=== PATIENT | female | born 1955 | race Caucasian/White ===

== ENCOUNTER 2025-03-31 06:41 | Emergency (ER) | payer OTHER ==
[~2025-03-31] VITALS: Ht 170.2 cm; Wt 79.4 kg
[2025-03-31 07:14] VITALS: BP 182/119
[2025-03-31] MEDS ORDERED: Triamcinolone Inj Susp 40 MG / ML 1ML Vial IM ONE (07:40)
== END 2025-03-31 07:54 | disposition home or self-care (01) ==
LOC: ER 06:41
DX: L23.7 Allergic contact dermatitis due to plants, except food (principal); Z91.040 Latex allergy status
CPT/HCPCS: 96372; 99282-25; J3301

== ENCOUNTER 2025-04-02 19:11 | Observation (INO) | payer MEDICARE ==
[~2025-04-02] VITALS: Ht 170.2 cm; Wt 72.6 kg
[2025-04-02 20:04] LABS: BASOPHILS ABSOLUTE AUTO 0.03 K/mm3 (0.00-0.23); BASOPHILS PERCENT AUTO 0 % (0-2); EOSINOPHILS ABSOLUTE AUTO 0.23 K/mm3 (0.00-0.68); EOSINOPHILS PERCENT AUTO 3 % (0-6); Hematocrit 41.8 % (33.0-51.0); Hemoglobin 13.9 g/dL (11.5-16.0); IMMATURE GRAN ABSOLUTE AUTO 0.03 K/mm3 (0.00-0.10); IMMATURE GRAN PERCENT AUTO 0 % (0-1); LYMPHOCYTES ABSOLUTE AUTO 0.97 K/mm3 (0.84-5.20); LYMPHOCYTES PERCENT AUTO 12 % (21-46); MONOCYTES ABSOLUTE AUTO 0.97 K/mm3 (0.16-1.47); MONOCYTES PERCENT AUTO 12 % (4-13); Mean Corpuscular HGB Conc 33.3 g/dL (31.5-36.5); Mean Corpuscular Volume 97 fL (80-100); NEUTROPHILS ABSOLUTE AUTO 5.92 K/mm3 (1.96-9.15); NEUTROPHILS PERCENT AUTO 73 % (41-73); NRBC ABSOLUTE 0.00 K/mm3 (0.00-0.02); NRBC Auto 0.0 /100 WBC (0.0-0.2); Platelet Count 186 K/mm3 (150-400); RDW Coefficient Variation 12.3 % (11.7-14.2); RDW Standard Deviation 44.4 fL (35.1-46.3)
[2025-04-02 20:29] LABS: Alanine Aminotransfer (ALT/SGP 32 U/L (12-78); Albumin, Blood 4.0 g/dL (3.4-5.0); Albumin/Globulin Ratio 1.2 (0.8-1.8); Anion Gap 7 mmol/L (3-11); Aspartate Aminotrans (AST/SGOT 23 U/L (12-37); Bilirubin, Total 0.6 mg/dL (0.1-1.0); Blood Urea Nitrogen 26 mg/dL (8-24); CO2, Blood 27 mmol/L (21-32); Calcium, Blood 9.8 mg/dL (8.5-10.1); Chloride, Blood 108 mmol/L (98-108); Creatinine, Blood 0.93 mg/dL (0.40-1.00); Ethanol (Alcohol), Blood, Med <3 mg/dL; Globulin, Blood 3.4 g/dL (2.2-4.0); Glucose, Blood 134 mg/dL (70-99); Potassium, Blood 3.9 mmol/L (3.5-5.5); Sodium, Blood 138 mmol/L (136-145); Total Protein, Blood 7.4 g/dL (6.4-8.2)
[2025-04-02] MEDS ORDERED: NS 1,000 ML IV ONE (20:36)
[2025-04-02 22:06] LABS: Source, Urine Clean Catch
[2025-04-02 22:14] LABS: Bilirubin, Urine Neg (Neg); Glucose Qualitative, Urine Neg (Neg); Ketones, Urine 1+ (Neg); Leukocyte Esterase, Urine 2+ (Neg); Protein, Urine 3+ (Neg); Specific Gravity, Urine 1.030 (1.003-1.022); Urobilinogen, Urine 1+ (Normal)
[2025-04-02 22:21] LABS: Color, Urine Yellow (P-Yellow)
[2025-04-02 22:22] LABS: Red Blood Cells, Urine 50-100 /hpf (0-2)
[2025-04-02 22:36] LABS: U Amphetamine Screen Not Detected; U Barbituate Screen Not Detected; U Benzodiazapine Screen Not Detected; U Cocaine Screen Not Detected; U Methadone Screen Not Detected; U Methamphetamine Screen Not Detected; U Opiates Screen Not Detected
[2025-04-02 22:37] LABS: U Buprenorphine Screen Not Detected; U Cannabinoids Screen Not Detected; U Oxycodone Screen Not Detected; U Phencyclidine Screen Not Detected
[2025-04-02] MEDS ORDERED: Midazolam HCl 1MG / ML 2ML Vial IV ONE ×2 (23:00→23:55)
[2025-04-02] MEDS ORDERED: Midazolam HCl 1MG / ML 2ML Vial ONE (23:38)
[2025-04-03 00:39] LABS: WBC Count, CSF 1 /mm3 (0-5)
[2025-04-03 00:40] LABS: RBC Count, CSF 36 /mm3 (0-0)
[2025-04-03] MEDS ORDERED: Midazolam HCl 1MG / ML 2ML Vial IV ONE (01:45)
[2025-04-03] MEDS ORDERED: Haloperidol Lactate Inj. 5 MG/ML Injection IM ONE (01:45)
[2025-04-03] MEDS ORDERED: DiphenhydrAMINE HCl 50 MG/ML 1ML Vial IV ONE (02:10)
[2025-04-03 02:39] LABS: Haemophilus Influenza Not Detected (NOT DETECT)
[2025-04-03] MEDS ORDERED: CefTRIAXone Sodium 1,000 MG in NS 50 ML IV ONE (04:00)
[2025-04-04] MEDS ORDERED: DiphenhydrAMINE HCL/Zinc Acet Cream TOP PRN (09:55)
[2025-04-04] MEDS ORDERED: PRAMOXINE HCL/CALAMINE LOTION 177 ML BTL TOP PRN (11:15)
[2025-04-05 08:13] VITALS: BP 128/73
== END 2025-04-05 14:10 | disposition other institution (70) ==
LOC: ER 19:11 → EOR 19:24
PROVIDERS: Emergency Medicine; Student in an Organized Health Care Education/Training Program; ADMIT Student in an Organized Health Care Education/Training Program
DX: F23 Brief psychotic disorder (principal); F22 Delusional disorders; Z85.820 Personal history of malignant melanoma of skin; Z91.040 Latex allergy status
CPT/HCPCS: 70450; 80053; 80320; 81001; 82945; 84157; 85025; 87070; 87086; 87205; 87483; 89051; 96372; 96374; 96375; 96376; 99285-25; A9270; G0378; J1200; J1630; J2250; J7030

== ENCOUNTER 2025-04-05 10:26 | Inpatient (IN) | payer MEDICARE ==
[~2025-04-05] VITALS: Ht 170.2 cm; Wt 74.9 kg
[2025-04-05] MEDS ORDERED: Ondansetron 4 MG SoluTab MM PRN (13:10)
[2025-04-05] MEDS ORDERED: Polyethylene Glycol 3350 17 gm PO PRN (13:10)
[2025-04-05] MEDS ORDERED: DiphenhydrAMINE HCl 50 MG/ML 1ML Vial IM PRN (13:15)
[2025-04-05] MEDS ORDERED: Haloperidol Lactate Inj. 5 MG/ML Injection IM PRN (13:15)
[2025-04-05] MEDS ORDERED: Aluminum Hydroxide 320MG/5ML 473 ML PO PRN (13:20)
[2025-04-05 14:22] VITALS: BP 121/65
[2025-04-05 14:49] VITALS: BP 121/65
[2025-04-05] MEDS ORDERED: PRAMOXINE HCL/CALAMINE LOTION 177 ML BTL TOP PRN (16:00)
[2025-04-05] MEDS ORDERED: DiphenhydrAMINE HCL/Zinc Acet Cream TOP PRN (16:05)
--- NOTE | 2025-04-05 16:40 | NUR ---
ADMIT ASSESSMENT: PT WAS ADMITTED TO [facility] AT 14:17, HER BELONGINGS WERE PUT IN A BIN AND IDENTIFIED WITH TAGS. SHE WAS VERY FORTHCOMING WITH ALL INFORMATION DURING THE ADMIT PROCESS. SHE FEELS THAT HER AND DAUGHTERS TRICKED HER INTO COMING INTO THE HOSPITAL. "THEY TOLD ME THAT WE WERE GOING FOR A RIDE TO PICK SOME THINGS UP AND THEY TOOK ME TO THE EMERGENCY ROOM." SHE TALKED ABOUT BEING HEALED BY HER HIGHER POWER AND BEING EXCITED TO GET BACK TO HER PROJECTS IN HER GARDEN. PT HAS POISON OAK ON HER BREASTS, LEGS ABDOMIN, ARMS AND FACE. SHE HAS AN ORDER FOR CALDYPHEN CREAM FOR THE POISON OAK. PT WAS ORIENTED TO THE UNIT AND TO HER ROOM. SHE HAS BEEN SITTING IN THE HALLWAY FOR A SHORT TIME AND WAS ON THE PHONE WITH HER , THE CALL SEEMED TO GO WELL.
[2025-04-05 19:58] VITALS: BP 128/81
--- NOTE | 2025-04-06 04:38 | NUR ---
SHIFT SUMMARY PATIENT OUT IN [place] VISITING WITH STAFF AND PEERS. EASILY BECOMING ANGRY WHEN TALKING ABOUT HOW HER AND DAUGHTERS TRICKED HER INTO COMING TO THE HOSPITAL AND BEING ADMITTED. VERBALIZED THAT SHE HAS ALOT TO DO AT HOME TO GROW HER "GARDEN OF JUST[place]" WITH TINY HOUSE LIVING FOR "EVERYONE" AND PLAN TO LIVE OFF THE LAND. DENIES SI, OR HI. WHEN ASKED ABOUT HALLUCINATIONS PATIENT VERBALIZED "NOT LIKE YOU THINK" "THEY ARE MY SPIRIT GUIDES" DURING ORIENTATION QUESTION PATIENT NEEDING SMALL AMT OF PROMPTING, AND WHEN CORRECTED IN AN ANSWER WOULD SAY "I KNOW" AND APPEAR FRUSTRATED. PATIENT RELUCTANT TO TAKE PO MEDICATIONS, NEEDING REASSURANCE AND REMINDING THAT THE DOCTOR WAS TRYING TO HELP BEFORE SHE WOULD TAKE SCHEDULED RISPERDAL. AFTER EATING SNACK PATIENT WENT TO BED THEN WOKE UP AT 0015 AND WAS STARTING TO GET READY FOR THE DAY. WHEN PATIENT INFORMED OF THE TIME SHE STATED "I NEED TO GET READY TO GO HOME" CALAMINE LOTION PLACED TO RED RASH TO BODY AND PATIENT APPEARED TO SETTLE IN TO REST. PATIENT CONTINUED TO REFUSE ANY SLEEP AID. PATIENT CONTINUES TO BE AWAKE WRITING IN HER JOURNAL AND DENYING NEED FOR SLEEP. VERBALIZED SEVERAL TIMES THAT SHE WAS GOING TO GIVE HER AND DAUGHTER "THEIR WALKING PAPERS" AND STATING THAT SHE IS GOING TO CHANGE HER POA AND VERBALIZING SEVERAL TIMES POA "ONLY COMES INTO PLAY IF I'M INCAPACITATED" PATIENT ENCOURAGED SEVERAL TIMES TO GET SOME SLEEP SO SHE WON'T BE TIRED WHEN THE DOCTOR COMES TO SEE HER. CONTINUE TO MONITOR Q15MIN
[2025-04-06 06:59] VITALS: BP 144/93
[2025-04-06 07:52] LABS: CHOL/HDL RATIO 2.7; Cholesterol 198 mg/dL (50-200); HDL Cholesterol 74 mg/dL (>39); LDL/HDL RATIO 1.5; Low Density Lipoprotein Chol 108 mg/dL (0-110); Triglycerides 81 mg/dL (30-160); Very Low Density Lipoprot Chol 16 mg/dL (6-32)
[2025-04-06] MEDS ORDERED: Multivitamins 1 Tab PO SCH (09:00)
--- NOTE | 2025-04-06 17:57 | NUR ---
SHIFT ASSESSMENT: PT DENIED SI, HI, AVH, ANXIETY AND PHYSICAL PAIN. SHE DESCRIBED HER MOOD , "EXCITED." HER AFFECT WAS CONGRUENT WITH HER STATED MOOD. PT HAS PARTICIPATED IN GROUPS AND THE PATIENT [place]. SHE ATTACHED HERSELF TO A PT THAT WAS DISCHARGING AND STILL THINKS THAT THE PT IS AT HER HOUSE WAITING FOR HER TO COME HOME. HER CALLED AND SAID THAT THE PT TOLD HER DAUGHTER THAT SHE IS "RUNNING THE UNIT...SHE IS PSYCHIC AND KNOWS WHAT IS GOING TO HAPPEN BEFORE ANYONE ELSE. SHE REPORTS HAVING MANY LIVES IN WHICH SHE WAS TO ANILA, THEY HAD MANY KIDS. ANILA WASN'T CRUCIFIED...THE BODY DOUBLE WAS...THEY GOT HIM OUT THROUGH A TUNNEL AND ONTO A BOAT. INES GOEL, SEMAJ STANTON JR, OLIVER ARE ALL STILL ALIVE. SHE IS PLEASANT AND COOPERATIVE WITH CARE. PT ATE ALL OF HER MEALS TODAY. SHE IS PRESENTLY SITTING ON THE PATIO.
--- NOTE | 2025-04-06 18:18 | NUR ---
PT HAS A HANDWRITTEN PLAN IN HER JOURNAL OF HER PLANS TO CREATE "THE [place]ARDEN [place]." SHE REPORTS: "I DID IT THE FIRST TIME AND I WILL DO IT AGAIN."
[2025-04-06 19:17] VITALS: BP 144/87
--- NOTE | 2025-04-07 04:23 | NUR ---
SHIFT SUMMARY: PATIENT WAS IN THE DINING ROOM HAVING DINNER AT THE BEGINNING OF THE SHIFT. WHEN SHE WAS FINISHED, SHE CAME OUT AND STATED, "THINGS ARE CHANGING AROUND HERE. i HAVE TO MAKE THE GARDEN. I KNOW HOW, BECAUSE I'VE DONE IT BEFORE. YOU CAN COME AND LIVE IN IT, IN YOUR TINY HOUSE." SHE WAS ENCOURAGED TO JOURNAL HER FEELINGS, AND REPLIED, "I AM WRITING MY PLANS IN MY JOURNAL". SHE WALKED SLOWLY UP AND DOWN THE HALLWAY, HOLDING HER JOURNAL AND PATIENT PEN, BEFORE GOING INTO HER ROOM. SHE WAS ABLE TO RESPOND TO LITHOGRAPHER HELPER QUESTIONS, BUT HER ANSWERS CONSISTED OF TANGENTIAL THOUGHTS AND FLIGHT OF IDEAS. SHE DENIED SUICIDAL IDEATION OR THOUGHTS OF SELF HARMING. SHE COULD NOT ANSWER WHETHER OR NOT SHE WAS HAVING HALLUCINATIONS, BUT DID NOT PRESENT THOUGH SHE WAS HAVING THEM. SHE WANTED TO TAKE A SHOWER, AND FORGOT TO TAKE HER TOWEL IN THE BATHROOM, SO WIPED HERSELF OFF WITH HER BATHROBE AND THEN ASKED FOR A NEW ONE. SHE MADE PUDDLES OF WATER ON THE FLOOR OF THE ROOM, WHICH WERE CLEANED UP. SHE WAS PLEASANT AND MOSTLY COOPERATIVE WITH CARES. SHE QUESTIONED HER MEDICATIONS, BUT AFTER BEING EDUCATED, SHE TOOK THEM. SHE WAS GIVEN HALDOL WITH BENADRYL FOR MASS SCORE OF 8, SHE WAS BECOMING AGITATED AND WANTED TO "HURT THE PERSON WHO IS STOPPING ME FROM GARDENING." SHE WAS SEARCHING THE UNIT FOR THAT PERSON, BUT DIDN'T SEEM TO KNOW WHO THEY WERE. SHE PARTICIPATED IN SNACK TIME AND WRAP UP GROUP, THEN WENT TO HER ROOM, WHERE SHE WAS AWAKE ON HER BED FOR A TIME. SHE WAS THEN NOTED TO BE RESTING QUIETLY WITH EYES CLOSED AND RESPIRATIONS CONFIRMED FOR THE REMAINDER OF THE SHIFT. CONTINUING TO MONITOR FOR SAFETY WITH Q15 MINUTE CHECKS.
[2025-04-07 07:46] VITALS: BP 136/69
--- NOTE | 2025-04-07 07:57 | NUR ---
The Monroe Cognitive Assessment (MoCA) Version 8.[address] Mendiola's request. The patient is a 69 year old female of whom was seated at the table in the consult room while completing this assessment. The patient is elated and engaged in the assessment though needed brief pauses when sharing things unrelated to the assessment. The patient shared that she communicates with higher mendoza and they want her to build a garden, that she had built one for them before. The patient shares that she was Tatyana Nj, girlfriend of Moody Bacon. The patient scored 21 out of 30 correct in the assessment. Final Score: 21/30 (Mild Cognitive impairment) 18-25 points is considered Mild Cognitive impairment 10-17 points is considered Moderate Cognitive impairment 10 or fewer points is considered Severe Cognitive impairment
--- NOTE | 2025-04-07 08:02 | NUR ---
SHIFT ASSESSMENT: PT WAS SITTING IN THE HALLWAY FOR ASSESSMENT. SHE DENIED SI AND HI. WHEN ASKED ABOUT AVH SHE DENIED THE PRESENCE BUT THEN REMARKED, "NOT ANY UNUSUAL ONES." SHE REPORTED, "I'M TIRED OF THE ROUTINE HERE...NOT THAT IT'S BAD...I JUST WANT TO GET TO MY GARDEN." HER AFFECT IS EUTHYMIC AND SHE DESCRIBED HER MOOD , "ANXIOUS TO GO HOME." PT IS ACTIVE IN THE [place].
--- NOTE | 2025-04-07 14:08 | NUR ---
SPOKE TO THE PT'S FAMILY AND LET THEM KNOW OF THE PLAN OF CARE. PT WAS INFORMED THAT THE DOCTOR WILL POSSIBLY DISCHARGE HER ON THURSDAY. PT SIGNED VOLUNTARY STATUS PAPERWORK. LATER SHE CAME UP THE THE NURSES STATION SAID, "I'M READY TO GO HOME...I'VE GONE TO GROUPS AND HAD LUNCH AND NOW I'M READY TO GO HOME." PT WAS REMINDED THAT THE DOCTOR WANTS TO DISCHARGE HER ON THURSDAY. SHE ASKED WHY AND WAS TOLD THAT HE WANTS TO MAKE SURE THAT THE MEDS ARE WORKING AND THAT SHE IS MORE STABLE. SHE SAID, "OK...I REALLY WANT TO GO HOME BUT I GUESS THURSDAY WILL DO." SHE DIDN'T GET UPSET AND RECIEVED THE NEWS IN GOOD HUMOR. PT WENT BACK TO GROUP.
[2025-04-07 19:19] VITALS: BP 140/61
--- NOTE | 2025-04-08 04:39 | NUR ---
SHIFT SUMMARY: PATIENT WAS IN THE DINING AREA EATING DINNER AT THE BEGINNING OF THE SHIFT. SHE CAME OUT AND INTERACTED IN A FRIENDLY MANNER WITH STAFF AND PEERS. SHE SPOKE TANGENTIALLY AND WITH FLIGHT OF IDEAS. SHE WAS ABLE TO ANSWER NETWORK SUPPORT TECHNICIAN QUESTIONS IN A MOSTLY LINEAR MANNER. SHE TALKED ABOUT HER "[place]" AND THE NEW GARDEN SHE IS HOPING TO START AT THE [facility] OUT IN THE [place]. SHE SPENT TIME ON THE PATIO AND ADMIRING ALL THE DRAWINGS ON THE WALL IN THE DAYROOM. SHE DENIED SUICIDAL IDEATION, THOUGHTS OF SELF HARMING AND A/V/T HALLUCINATIONS. SHE WAS MEDICATION COMPLIANT, AND COOPERATIVE WITH CARES. SHE WAS ITCHING FROM HER POISON OAK, AND HAD RN APPLY CALAMINE LOTION TO THE AFFECTED AREAS. SHE PARTICIPATED IN SNACK TIME AT 2030, AND WENT TO BED SHORTLY AFTER, WHERE SHE WAS NOTED TO BE RESTING QUIETLY WITH EYES CLOSED AND RESPIRATIONS CONFIRMED FOR THE REMAINDER OF THE SHIFT. CONTINUING TO MONITOR FOR SAFETY WITH Q15 MINUTE CHECKS.
[2025-04-08 08:54] VITALS: BP 133/66
[2025-04-08 09:52] LABS: Alanine Aminotransfer (ALT/SGP 26.0 U/L (12-78); Albumin, Blood 3.6 g/dL (3.4-5.0); Albumin/Globulin Ratio 1.0 (0.8-1.8); Aspartate Aminotrans (AST/SGOT 17.0 U/L (12-37); Bilirubin, Direct 0.1 mg/dL (0.0-0.3); Bilirubin, Indirect 0.4 mg/dL (0.1-0.7); Bilirubin, Total 0.5 mg/dL (0.1-1.0); Globulin, Blood 3.5 g/dL (2.2-4.0); Total Protein, Blood 7.1 g/dL (6.4-8.2)
--- NOTE | 2025-04-08 16:55 | NUR ---
SHIFT SUMMARY PT A/O X3-4; DENIES SI, HI, AVTH. PT REPORTS BEING MORE TIRED THAN USUAL DESPITE SLEEPING WELL LAST NIGHT. PT SAT OUT IN THE SUN AND WHILE TIRED AND NEEDED HELP GETTING OUT OF HER CHAIR. ADVISED PT BE CAREFUL SITTING IN THE SUN BECAUSE IT IS A HOT DAY OUTSIDE. ALSO EDUCATED PT ON EVENING MEDICATIONS. PT CONTINUES TO GIVE OUT HER HOME ADDRESS TO OTHER PTS AND SAYS THAT SHE IS GOING TO HOUSE THEM. PT REPORTED TO WOODEN BOX MAKER THAT SHE IS GOING TO PUT TINY HOMES ON HER PROPERTY AND DOES NOT CARE IF HER DOES NOT LIKE IT. PT ALSO HAD A VISIT TODAY WITH HER DAUGHTERS. THE PT BECAME UPSET DURING THE VISIT. THE PT SAID THAT HER DAUGHTERS TOLD HER THAT SHE HAD BIPOLAR AND SHE CALMLY ASKED RN IF SHE COULD ASK THE DAUGHTERS TO LEAVE. DAUGHTERS LEFT WITHOUT ISSUE. PT PARTICIPATES IN UNIT ACTIVITES AND CONTINUES TO BE MONITORED VIA Q15 ROUNDING FOR SAFETY AND WELLNESS.
--- NOTE | 2025-04-08 19:35 | NUR ---
ADDENDUM TO 04/07/25: PATIENT MASS SCORE OF 8 RELATED TO BECOMING UPSET REGARDING "MY CAN'T BOSS ME", "I'M GOING TO USE MY PROPERTY HOW I WANT", "EVERYONE NEEDS TO COME AND LIVE IN A TINY HOUSE". REDIRECTION IS NORMALLY SUCCESSFUL WITH THIS PATIENT, BUT WAS NOT AT THIS TIME. GIVEN HALDOL WITH BENADRYL, WHICH WAS EFFECTIVE, AND PATIENT WAS ABLE TO CALM ENOUGH TO REST.
[2025-04-08 19:51] VITALS: BP 115/51
[2025-04-08] MEDS ORDERED: Divalproex Sodium 500 MG TABCR PO SCH (21:00)
--- NOTE | 2025-04-09 05:07 | NUR ---
SHIFT SUMMARY: PATIENT WAS IN BED AT DINNER TIME AND DID NOT WANT TO EAT. SHE ALSO DECLINED TO HAVE SNACK, AND WAS TOLD WE DO NOT SERVE FOOD AT NIGHT. SHE STATED, "THAT'S FINE, I'M NOT HUNGRY". SHE WAS BARELY ABLE TO AWAKEN ENOUGH TO ANSWER BAR MANAGER QUESTIONS, BUT DID DENY SUICIDAL IDEATION, THOUGHTS OF SELF HARMING AND A/V/T HALLUCINATIONS. SHE STATED, "MY DAUGHTERS CAME TO VISIT, BUT I TOLD THEM TO GO. I SAID IT NICELY." SHE STATED, "I'M SUPER TIRED TODAY. I JUST WANT TO SLEEP." SHE WAS COMPLIANT WITH EVENING MEDICATIONS, BUT OTHERWISE WAS MOSTLY IN BED RESTING WITH EYES CLOSED AND RESPIRATIONS CONFIRMED FOR THE REMAINDER OF THE SHIFT. CONTINUING TO MONITOR FOR SAFETY WITH Q15 MINUTE CHECKS.
[2025-04-09 09:09] VITALS: BP 128/69
--- NOTE | 2025-04-09 16:52 | NUR ---
Shift summary 04/09/25- Patient appears to be less sedated today. She states she feels less sedated and is thankful that she didn't take as much medications the night before. She said "I feel like myself, like normal". Patient denies having any hallucinations. She denies having thoughts of self harm/suicide and denies homicidal ideation. Patient is still fixed on the idea of being able to have tiny homes for others to use on her property. She becomes visibly agitated when she is talking about her tiny home rentals and thinking about her trying to stop her from her plan. Patient was actively participating in groups today, and was very interactive with the other women on the unit. She appears to be social and thriving on the company of others.
[2025-04-09 19:20] VITALS: BP 137/70
--- NOTE | 2025-04-10 04:45 | NUR ---
SHIFT SUMMARY PATIENT UP IN [place] VISITING WITH STAFF AND PEERS. DENIES SI, HI, OR AVH. VERBALIZED THAT SHE IS FEELING "WONDERFUL". WANTING TO GO HOME TOMORROW (THURSDAY). PATIENT REQUESTING HS MEDICATIONS EARLY AND REFUSING SNACK. COOPERATIVE WITH SCHEDULED HS MEDICATIONS. PATIENT SLEEPING WELL UNTIL 0100 THEN HAVING RESTLESS SLEEP, DENIES NEED FOR SLEEP AID. PATIENT NOW AWAKE AND UP WALKING IN [place] OR SITTING AT NURSES DESK. PATIENT VERBALIZED THAT SHE IS STILL HOPEFUL TO BE GOING HOME TODAY, AND VERBALIZED THAT SHE REALIZES THAT SHE WILL NEED TO WAIT FOR THE DOCTOR TO COME IN LATER TODAY. CONTINUE TO MONITOR Q15MIN
[2025-04-10 06:55] VITALS: BP 141/82
[2025-04-10] MEDS ORDERED: CEPH500 PO (11:35)
[2025-04-10] MEDS ORDERED: RISP1 PO (11:36)
[2025-04-10] MEDS ORDERED: DIVA500ER PO (11:36)
--- NOTE | 2025-04-10 13:15 | NUR ---
DISCHARGE NOTE: PT ARRIVED FOR RIDE HOME. THIS RN AND JASMEET IGNACIO RN MET WITH AND PATIENT. DISCUSSED DISCHARGE INSTRUTIONS AND BOTH STATED FULL UNDERSTANDING. PT BELONGINGS RETURNED BY NOAH PLATT. PT AMBULATED OUT OF UNIT WITH DISCHARGE INSTRUCTIONS, RX INFORMATION AND BELONGINGS IN HAND.
== END 2025-04-10 13:15 | disposition home or self-care (01) | DRG 885 ==
LOC: BHU 10:26
PROVIDERS: ADMIT Psychiatry & Neurology Psychiatry
DX: F22 Delusional disorders (principal); F23 Brief psychotic disorder; R55 Syncope and collapse; Z91.040 Latex allergy status; Z79.899 Other long term (current) drug therapy
CPT/HCPCS: 36415; 80061; 80076; 83036; A9270